=== PATIENT | male | born 1960 | race Caucasian/White ===

== ENCOUNTER 2022-10-09 01:59 | Inpatient (IN) | payer OTHER ==
[2022-10-09 03:25] VITALS: BMI 24.2
[2022-10-09] MEDS ORDERED: Acetaminophen 325 MG TAB PO PRN (03:43)
[2022-10-09] MEDS ORDERED: Ondansetron ODT 4 MG TAB PO PRN (03:43)
[2022-10-09] MEDS ORDERED: Senokot S 8.6-50 MG TAB PO PRN (03:43)
[2022-10-09] MEDS ORDERED: Calcium Carbonate 500 MG ChewTAB PO PRN (03:43)
[2022-10-09] MEDS ORDERED: HumaLOG 300 UNITS/3 ML VIAL SC PRN ×2 (03:47)
[2022-10-09] MEDS ORDERED: Dextrose 5% in Water 1,000 ML IV PRN (03:47)
[2022-10-09] MEDS ORDERED: Dextrose 50% Abboject 50 ML SYRINGE SLOW IVP PRN (03:47)
[2022-10-09] MEDS ORDERED: Piperacillin/Tazobactam 3.375 GM in Sodium Chloride 0.9% 100 ML IVPB SCH ×2 (04:00→12:00)
[2022-10-09] MEDS: HYDROcodone/Acetaminophen 5/325 mg Tablet PO PRN ×3 (04:14→15:25)
[2022-10-09] MEDS: Nicotine 14 MG PATCH TD SCH (04:25)
[2022-10-09] MEDS ORDERED: Vancomycin 1.5 GRAM/300 ML BAG 1.5 GM in Premix Bag 1 BAG IVPB SCH (05:00)
[2022-10-09 05:35] LABS: #Eosinphils 0.2 thou/uL (0.0-0.7); #Monocytes 0.7 thou/uL (0.11-0.59); #Neutrophils 5.8 thou/uL (1.40-6.50); %Basophils 0.3 % (0.0-1.0); %Eosinophils 2.2 % (0.0-10.0); %Monocytes 7.1 % (0.0-10.0); %Neutrophils 62.9 % (42.0-75.0); Hemoglobin 9.4 g/dL (14.0-18.0); Mean Corpuscular HGB CONC 29.4 g/dL (32.0-36.0); Mean Corpuscular Hemoglobin 25.8 pg (27.0-31.0); Mean Corpuscular Volume 87.7 fl (78.0-98.0); Mean Platelet Volume 8.3 fL (7.4-10.4); Platelet Count 375 10x3/uL (130-400); Red Blood Cell (RBC) Count 3.65 mill/uL (4.70-6.10); White Blood Cell (WBC) Count 9.2 10x3/uL (4.8-10.8)
[2022-10-09 05:54] LABS: ALT (SGPT) Less than 7 U/L (8-55); AST (SGOT) 7 U/L (5-34); Albumin 3.1 g/dL (3.5-5.0); Alkaline Phosphatase 65 U/L (40-110); Anion Gap 10 mmol/L (10-20); BUN (Urea Nitrogen) 12 mg/dL (8.4-25.7); Bilirubin, Total Less than 0.2 mg/dL (0.2-1.2); Calc. Creatinine Clearance 88 mL/min (70-130); Calcium 8.4 mg/dL (7.8-10.44); Carbon Dioxide 26 mmol/L (22-29); Chloride 105 mmol/L (98-107); Estimated GFR 89; Globulin 3.1 g/dL (2.4-3.5); Glucose 94 mg/dL (70-105); Potassium 3.8 mmol/L (3.5-5.1); Protein, Total 6.2 g/dL (6.0-8.3); Sodium 137 mmol/L (136-145)
[2022-10-09 06:06] LABS: Hemoglobin A1c 11.3 % (4.0-6.0)
[2022-10-09] MEDS: busPIRone HCl 10 MG TAB PO SCH ×2 (09:09→20:24)
[2022-10-09] MEDS: Aripiprazole 10 MG TAB PO SCH (09:09)
[2022-10-09] MEDS: Famotidine 20 MG TAB PO SCH ×2 (09:09→20:24)
[2022-10-09] MEDS: DULoxetine 60 MG CAP PO SCH (09:09)
[2022-10-09] MEDS ORDERED: Iopamidol 370 76% 100 ML VIAL ONE (10:17)
[2022-10-09] MEDS: Piperacillin/Tazobactam 3.375 GM in Sodium Chloride 0.9% 100 ML IVPB SCH ×2 (12:06→20:24)
[2022-10-09] MEDS ORDERED: Non-Formulary Item 1 EACH (Gabapentin [Gabapentin] 600 MG Tablet) PO SCH (17:00)
[2022-10-09] MEDS: Gabapentin 300 MG CAP PO SCH ×2 (18:30→23:34)
[2022-10-09] MEDS: VANCOMYCIN 1.25 GM/250 ML BAG 1.25 GM in Premix Bag 1 BAG IVPB SCH (18:30)
[2022-10-09] MEDS: Oxybutynin ER 5 MG TAB PO SCH (20:24)
[2022-10-09] MEDS: QUEtiapine 100 MG TAB PO SCH (20:24)
[2022-10-10] MEDS: Piperacillin/Tazobactam 3.375 GM in Sodium Chloride 0.9% 100 ML IVPB SCH ×3 (03:09→20:00)
[2022-10-10] MEDS: HYDROcodone/Acetaminophen 5/325 mg Tablet PO PRN ×3 (04:01→21:22)
[2022-10-10] MEDS: Gabapentin 300 MG CAP PO SCH ×3 (05:15→18:20)
[2022-10-10] MEDS: VANCOMYCIN 1.25 GM/250 ML BAG 1.25 GM in Premix Bag 1 BAG IVPB SCH ×2 (05:16→18:20)
[2022-10-10] MEDS: Nicotine 14 MG PATCH TD SCH (05:18)
[2022-10-10 06:59] LABS: #Eosinphils 0.2 thou/uL (0.0-0.7); #Monocytes 0.4 thou/uL (0.11-0.59); #Neutrophils 4.1 thou/uL (1.40-6.50); %Basophils 0.6 % (0.0-1.0); %Eosinophils 2.6 % (0.0-10.0); %Monocytes 5.5 % (0.0-10.0); %Neutrophils 57.9 % (42.0-75.0); Hemoglobin 9.2 g/dL (14.0-18.0); Mean Corpuscular HGB CONC 29.9 g/dL (32.0-36.0); Mean Corpuscular Hemoglobin 26.7 pg (27.0-31.0); Mean Corpuscular Volume 89.5 fl (78.0-98.0); Mean Platelet Volume 8.2 fL (7.4-10.4); Platelet Count 376 10x3/uL (130-400); RBC Distribution Width 14.2 % (11.5-14.5); Red Blood Cell (RBC) Count 3.44 mill/uL (4.70-6.10)
[2022-10-10 07:16] LABS: Anion Gap 11 mmol/L (10-20); BUN (Urea Nitrogen) 11 mg/dL (8.4-25.7); Calc. Creatinine Clearance 85 mL/min (70-130); Calcium 8.4 mg/dL (7.8-10.44); Carbon Dioxide 24 mmol/L (22-29); Chloride 106 mmol/L (98-107); Estimated GFR 85; Glucose 150 mg/dL (70-105); Potassium 4.3 mmol/L (3.5-5.1); Sodium 137 mmol/L (136-145)
[2022-10-10] MEDS: Aripiprazole 10 MG TAB PO SCH (08:18)
[2022-10-10] MEDS: DULoxetine 60 MG CAP PO SCH (08:18)
[2022-10-10] MEDS: busPIRone HCl 10 MG TAB PO SCH ×2 (08:18→21:22)
[2022-10-10] MEDS: Famotidine 20 MG TAB PO SCH ×2 (08:18→21:21)
[2022-10-10] MEDS: Lactated Ringer's 1,000 ML IV SCH ×2 (08:18→17:59)
[2022-10-10] MEDS ORDERED: Propofol 500 MG/50 ML VIAL ONE (10:54)
[2022-10-10] MEDS ORDERED: fentaNYL PF 100 MCG/2 ML SYRINGE ONE (10:54)
[2022-10-10] MEDS ORDERED: Midazolam HCl 2 mg/2 ml Vial ONE (10:54)
[2022-10-10] MEDS ORDERED: Ondansetron PF 4 MG/2 ML Vial ONE (11:22)
[2022-10-10 14:45] LABS: Glucose 285 mg/dL (70-105)
[2022-10-10 17:28] LABS: Glucose 278 mg/dL (70-105)
[2022-10-10 17:31] LABS: Vancomycin, Trough 13.3 ug/mL
[2022-10-10] MEDS: Oxybutynin ER 5 MG TAB PO SCH (21:21)
[2022-10-10] MEDS: QUEtiapine 100 MG TAB PO SCH (21:21)
[2022-10-11] MEDS: Gabapentin 300 MG CAP PO SCH ×5 (01:36→23:53)
[2022-10-11] MEDS: Lactated Ringer's 1,000 ML IV SCH (04:03)
[2022-10-11] MEDS: Piperacillin/Tazobactam 3.375 GM in Sodium Chloride 0.9% 100 ML IVPB SCH ×3 (04:03→20:27)
[2022-10-11] MEDS: VANCOMYCIN 1.25 GM/250 ML BAG 1.25 GM in Premix Bag 1 BAG IVPB SCH ×3 (06:16→20:57)
[2022-10-11] MEDS: Nicotine 14 MG PATCH TD SCH ×2 (06:18→06:29)
[2022-10-11] MEDS: HYDROcodone/Acetaminophen 5/325 mg Tablet PO PRN ×3 (06:22→23:54)
[2022-10-11 08:15] LABS: Anion Gap 14 mmol/L (10-20); BUN (Urea Nitrogen) 19 mg/dL (8.4-25.7); Calc. Creatinine Clearance 75 mL/min (70-130); Calcium 8.8 mg/dL (7.8-10.44); Carbon Dioxide 21 mmol/L (22-29); Chloride 108 mmol/L (98-107); Estimated GFR 74; Glucose 217 mg/dL (70-105); Potassium 4.9 mmol/L (3.5-5.1); Sodium 138 mmol/L (136-145)
[2022-10-11 08:20] LABS: #Eosinphils 0.2 thou/uL (0.0-0.7); #Monocytes 0.5 thou/uL (0.11-0.59); #Neutrophils 3.5 thou/uL (1.40-6.50); %Basophils 0.5 % (0.0-1.0); %Eosinophils 2.6 % (0.0-10.0); %Lymphocytes 37.3 % (21.0-51.0); %Monocytes 7.1 % (0.0-10.0); %Neutrophils 51.9 % (42.0-75.0); Hemoglobin 9.6 g/dL (14.0-18.0); Mean Corpuscular HGB CONC 29.4 g/dL (32.0-36.0); Mean Corpuscular Hemoglobin 26.8 pg (27.0-31.0); Mean Corpuscular Volume 91.3 fl (78.0-98.0); Mean Platelet Volume 8.9 fL (7.4-10.4); Platelet Count 457 10x3/uL (130-400); RBC Distribution Width 13.9 % (11.5-14.5); Red Blood Cell (RBC) Count 3.58 mill/uL (4.70-6.10); White Blood Cell (WBC) Count 6.6 10x3/uL (4.8-10.8)
[2022-10-11] MEDS ORDERED: Dextrose 50% Abboject 50 ML SYRINGE SLOW IVP PRN (08:44)
[2022-10-11] MEDS ORDERED: Dextrose 5% in Water 1,000 ML IV PRN (08:44)
[2022-10-11 08:48] LABS: Band 2 % (5-11); CellaVision Operator ID LAB.GE; Eosinophils 2 % (0-10); Lymphocytes 30 % (21-51); Monocytes 6 % (0-10); Neutrophil 59 % (42-75); Platelet Morphology Comment Platelets Increased; Polychromasia SLIGHT = 2-3 cells HPF (0-2); Total Cell Count 99
[2022-10-11] MEDS: busPIRone HCl 10 MG TAB PO SCH ×2 (10:20→20:27)
[2022-10-11] MEDS: DULoxetine 60 MG CAP PO SCH (10:20)
[2022-10-11] MEDS: Aripiprazole 10 MG TAB PO SCH (10:21)
[2022-10-11] MEDS: Famotidine 20 MG TAB PO SCH ×2 (10:21→20:27)
[2022-10-11] MEDS: Insulin Glargine 30 UNITS/0.3 ML VIAL SC SCH (10:21)
[2022-10-11] MEDS: HumaLOG 300 UNITS/3 ML VIAL SC PRN ×2 (12:32→22:10)
[2022-10-11] MEDS: Oxybutynin ER 5 MG TAB PO SCH (20:27)
[2022-10-11] MEDS: QUEtiapine 100 MG TAB PO SCH (20:27)
[2022-10-12] MEDS: Piperacillin/Tazobactam 3.375 GM in Sodium Chloride 0.9% 100 ML IVPB SCH ×3 (05:52→20:19)
[2022-10-12] MEDS: HumaLOG 300 UNITS/3 ML VIAL SC PRN ×2 (05:53→20:20)
[2022-10-12] MEDS: Gabapentin 300 MG CAP PO SCH ×4 (05:53→23:49)
[2022-10-12] MEDS: HYDROcodone/Acetaminophen 5/325 mg Tablet PO PRN ×3 (05:59→20:30)
[2022-10-12] MEDS: Nicotine 14 MG PATCH TD SCH (06:09)
[2022-10-12 07:36] LABS: Glucose 162 mg/dL (70-105)
[2022-10-12 07:42] LABS: Vancomycin, Trough 24.8 ug/mL
[2022-10-12] MEDS: VANCOMYCIN 1.25 GM/250 ML BAG 1.25 GM in Premix Bag 1 BAG IVPB SCH (08:28)
[2022-10-12] MEDS: DULoxetine 60 MG CAP PO SCH (08:58)
[2022-10-12] MEDS: Aripiprazole 10 MG TAB PO SCH (08:58)
[2022-10-12] MEDS: Famotidine 20 MG TAB PO SCH ×2 (08:58→20:20)
[2022-10-12] MEDS: Insulin Glargine 30 UNITS/0.3 ML VIAL SC SCH (08:58)
[2022-10-12] MEDS: busPIRone HCl 10 MG TAB PO SCH ×2 (08:58→20:20)
[2022-10-12] MEDS: Vancomycin 1 GM in Premix Bag 1 BAG IVPB SCH ×2 (11:56→23:49)
[2022-10-12] MEDS: QUEtiapine 100 MG TAB PO SCH (20:20)
[2022-10-12] MEDS: Oxybutynin ER 5 MG TAB PO SCH (20:20)
[2022-10-13] MEDS: Piperacillin/Tazobactam 3.375 GM in Sodium Chloride 0.9% 100 ML IVPB SCH ×2 (04:21→12:20)
[2022-10-13] MEDS: Gabapentin 300 MG CAP PO SCH ×2 (06:04→12:20)
[2022-10-13] MEDS: HumaLOG 300 UNITS/3 ML VIAL SC PRN ×2 (06:05→12:20)
[2022-10-13] MEDS: Nicotine 14 MG PATCH TD SCH (06:05)
[2022-10-13] MEDS: busPIRone HCl 10 MG TAB PO SCH (08:50)
[2022-10-13] MEDS: Aripiprazole 10 MG TAB PO SCH (08:50)
[2022-10-13] MEDS: Insulin Glargine 30 UNITS/0.3 ML VIAL SC SCH (08:50)
[2022-10-13] MEDS: Famotidine 20 MG TAB PO SCH (08:50)
[2022-10-13] MEDS: DULoxetine 60 MG CAP PO SCH (08:50)
[2022-10-13] MEDS: HYDROcodone/Acetaminophen 5/325 mg Tablet PO PRN (09:17)
[2022-10-13] MEDS: Vancomycin 1 GM in Premix Bag 1 BAG IVPB SCH (10:55)
[2022-10-13 12:21] VITALS: BP 116/73; TEMP 97.9
== END 2022-10-13 16:49 | disposition home or self-care (01) | DRG 617 ==
LOC: SJJU 03:04
PROVIDERS: ADMIT Student in an Organized Health Care Education/Training Program; ATTEND Family Medicine
PROC: 0Y6W0Z1 Detachment at Left 4th Toe, High, Open Approach (ICD-10-PCS; principal; 2022-10-10)
PROC: 0JBR0ZZ Excision of Left Foot Subcutaneous Tissue and Fascia, Open Approach (ICD-10-PCS; 2022-10-10)
DX: E11.69 Type 2 diabetes mellitus with other specified complication (principal); F20.0 Paranoid schizophrenia; M86.8X7 Other osteomyelitis, ankle and foot; E11.621 Type 2 diabetes mellitus with foot ulcer; L97.529 Non-pressure chronic ulcer of other part of left foot with unspecified severity; F32.A Depression, unspecified; E11.42 Type 2 diabetes mellitus with diabetic polyneuropathy; F15.10 Other stimulant abuse, uncomplicated; F17.210 Nicotine dependence, cigarettes, uncomplicated; Z60.2 Problems related to living alone; E11.65 Type 2 diabetes mellitus with hyperglycemia; E11.51 Type 2 diabetes mellitus with diabetic peripheral angiopathy without gangrene; Z79.899 Other long term (current) drug therapy; Z71.6 Tobacco abuse counseling; Z71.51 Drug abuse counseling and surveillance of drug abuser
CPT/HCPCS: 36415; 36416; 75635; 80202; 82947; 83036; 85025; 86140; 88305; 88311; 93923; 97139; J1650; J1815; J2250; J2405; J2543; J2704; J3370; J3370-JW; J3490; J7120; Q9967